=== PATIENT | male | born 2000 | race African-American/Black ===

== ENCOUNTER 2020-11-04 02:31 | Emergency (ER) | payer OTHER ==
--- NOTE | 2020-11-04 08:11 | RAD ---
EXAM: Single view of the chest HISTORY: Chest pain and pseudoseizures COMPARISON: 04/04/2020 FINDINGS: Single view of the chest shows a normal sized cardiomediastinal silhouette. There is no dimitrios dence of consolidation, mass, or pleural effusion. No acute osseous abnormality. IMPRESSION: No evidence of acute cardiopulmonary disease
--- NOTE | 2020-11-08 15:16 | EKG ---
Test Reason : Blood Pressure : / mmHG Vent. Rate : 058 BPM Atrial Rate : 058 BPM P-R Int : 138 ms QRS Dur : 100 ms QT Int : 400 ms P-R-T Axes : 024 079 066 degrees QTc Int : 392 ms Sinus bradycardia with sinus arrhythmia Minimal voltage criteria for LVH, may be normal variant Early repolarization Borderline ECG Confirmed by JESSICA HORTA M.D. ([id number]), city editor TIA ESPARZA ([id number]) on 11/08/2020 3:16:03 PM Referred By: Confirmed By:JESSICA HORTA M.D.
== END 2020-11-04 03:05 ==
LOC: ERS 02:31
DX: R07.89 Other chest pain (principal); R56.9 Unspecified convulsions; M54.5 Low back pain
CPT/HCPCS: 36416; 71045; 93005

== ENCOUNTER 2021-01-05 19:25 | Emergency (ER) | payer OTHER | END 2021-01-05 21:41 | LOC: ERS 19:25 → EEVIPCON 19:25 → ERS 21:41 | DX: S16.1XXA Strain of muscle, fascia and tendon at neck level, initial encounter (principal); S00.83XA Contusion of other part of head, initial encounter; F17.210 Nicotine dependence, cigarettes, uncomplicated; W19.XXXA Unspecified fall, initial encounter | CPT/HCPCS: 70450; 72125; 93005 ==